=== PATIENT | female | born 1940 | race Caucasian/White ===

== ENCOUNTER 2018-08-13 09:44 | Day surgery (SDC) | payer MEDICARE, OTHER ==
[2018-08-08 09:53] LABS: BASOPHILS % (AUTO) 0.5 % (0-1); EOSINOPHILS # (AUTO) 0.1 X10'3 (0-0.9); EOSINOPHILS % (AUTO) 2.6 % (0-6); HEMOGLOBIN 13.5 g/dl (12.0-16.0); LYMPHOCYTES # (AUTO) 1.2 X10'3 (1.1-4.8); LYMPHOCYTES % (AUTO) 21.8 % (21-51); MEAN CORPUSCULAR HEMOGLOBIN 30.4 PG (27.0-31.0); MEAN CORPUSCULAR HGB CONC 33.9 % (33.0-36.5); MEAN CORPUSCULAR VOLUME 89.6 FL (78-98); MEAN PLATELET VOLUME 7.7 FL (7.4-10.4); MONOCYTES # (AUTO) 0.3 X10'3 (0-0.9); MONOCYTES % (AUTO) 5.7 % (2-12); NEUTROPHILS # (AUTO) 3.9 X10'3 (1.8-7.7); NEUTROPHILS % (AUTO) 69.4 % (42-75); PLATELET COUNT 300 X10'3 (140-440); RED BLOOD COUNT 4.46 X10'6 (4.20-5.60); RED CELL DISTRIBUTION WIDTH 13.2 % (11.5-14.5); WHITE BLOOD COUNT 5.7 X10'3 (4.5-11.0)
[2018-08-08 10:08] LABS: ALANINE AMINOTRANSFERASE 23 U/L (12-78); ALBUMIN 3.5 G/DL (3.4-5.0); ALBUMIN/GLOBULIN RATIO 0.9 (1.1-1.5); ALKALINE PHOSPHATASE 95 IU/L (46-116); ANION GAP 6 (8-16); ASPARTATE AMINO TRANSFERASE 16 U/L (10-37); BILIRUBIN,TOTAL 0.7 MG/DL (0.1-1.0); BLOOD UREA NITROGEN 20 MG/DL (7-18); BUN/CREATININE RATIO 20.2 (6.6-38.0); CALCIUM 9.4 MG/DL (8.5-10.1); CHLORIDE 102 MMOL/L (99-107); CREATININE 0.99 MG/DL (0.40-0.90); GLUCOSE 103 MG/DL (70-104); PARTIAL THROMBOPLASTIN TIME 25 SECONDS (22-32); POTASSIUM 3.4 MMOL/L (3.5-5.1); PROTHROMBIN TIME 9.7 SECONDS (9.0-12.0); SODIUM 139 MMOL/L (135-145); TOTAL CARBON DIOXIDE 30.7 MMOL/L (24-32); TOTAL PROTEIN 7.4 G/DL (6.4-8.2); eGFR 55 ML/MIN
[~2018-08-13] VITALS: Ht 162.6 cm; Wt 79.7 kg
[2018-08-13] VITALS (11 sets, daily range): BP systolic 96–161; BP diastolic 39–95
[2018-08-13] MEDS ORDERED: CHOL100024 (10:32)
[2018-08-13] MEDS ORDERED: LOSA1TAB15 PO (10:32)
[2018-08-13] MEDS ORDERED: CHLO-188 PO (10:32)
[2018-08-13] MEDS ORDERED: VITAMIN B12 PO (10:32)
[2018-08-13] MEDS ORDERED: ASPI-974 PO (10:32)
[2018-08-13] MEDS ORDERED: POTA10TA36 PO (10:32)
[2018-08-13] MEDS ORDERED: LORazepam 0.5 MG tablet PO PRN (11:35)
[2018-08-13] MEDS ORDERED: normal saline 1000ml 1,000 ML IV SCH (11:35)
[2018-08-13] MEDS ORDERED: nitroGLYCERIN 0.4mg SUBLingual tab SL PRN ×2 (11:35→13:50)
[2018-08-13] MEDS ORDERED: diphenhydrAMINE 25mg capsule PO PRN (11:35)
[2018-08-13] MEDS ORDERED: fentaNYL/PF 50MCG/1 ML 2ML syringe ONE (12:40)
[2018-08-13] MEDS ORDERED: heparin 1,000 UNITS/NS 500ml 500 ML ONE ×2 (12:41)
[2018-08-13] MEDS ORDERED: iohexol 350MG/ML 100ml bottle IV ONE (12:41)
[2018-08-13] MEDS ORDERED: LIDOcaine 1% (10mg/ml)w/preservative injection 20ml MDV ONE (12:41)
[2018-08-13] MEDS ORDERED: midazolam 2 mg/2 ml injection ONE (12:41)
[2018-08-13] MEDS ORDERED: iohexol 350 MG/ML 50ML vial IV ONE (12:41)
[2018-08-13] MEDS ORDERED: ondansetron/PF 4mg/2ml inj IV PRN (13:50)
[2018-08-13] MEDS ORDERED: OXAZEpam 15mg capsule PO PRN (13:50)
[2018-08-13] MEDS ORDERED: normal saline 1000ml 1,000 ML IV ONE (13:50)
[2018-08-13] MEDS ORDERED: proCHLORperazine 10 MG/2 ml inj IV PRN (13:50)
[2018-08-13] MEDS ORDERED: HYDROcodone/acetaminophen 5mg/325mg tablet PO PRN (13:50)
[2018-08-13] MEDS ORDERED: HYDROcodone/acetaminophen 10/325mg tab PO PRN (13:50)
== END 2018-08-13 19:10 | disposition home or self-care (01) ==
LOC: SSTAY O 09:44
PROVIDERS: ATTEND Internal Medicine Cardiovascular Disease
DX: I25.118 Atherosclerotic heart disease of native coronary artery with other forms of angina pectoris (principal); I34.1 Nonrheumatic mitral (valve) prolapse; I49.3 Ventricular premature depolarization; I34.0 Nonrheumatic mitral (valve) insufficiency; I45.81 Long QT syndrome; I10 Essential (primary) hypertension; E78.5 Hyperlipidemia, unspecified; Z88.1 Allergy status to other antibiotic agents; Z85.22 Personal history of malignant neoplasm of nasal cavities, middle ear, and accessory sinuses; Z79.82 Long term (current) use of aspirin; Z79.899 Other long term (current) drug therapy
CPT/HCPCS: 36415; 71046; 80053; 85025; 85610; 85730; 93005; 93458; 99152; 99153; A6257; C1760; J1644; J2001; J2250; J3010; J7030; Q0163; Q9967; A4620; C1769